=== PATIENT | male | born 1985 | race Two or more races ===

== ENCOUNTER 2024-03-06 06:59 | Emergency (ER) | payer MEDICAID, SELFPAY ==
--- NOTE | 2024-03-06 07:02 | EDNOTE_ITS ---
ED Overdose RME/HPI General Stated Complaint: OVERDOSE Time Seen by Provider: 03/06/24 07:04 Arrival date/time: 03/06/24 06:59 RME / HPI RME / HPI Narrative: This section includes all my notes and documentations, including HPI, PE, MDM, Procedure Notes, and PLAN. Conrado Sotomayor MD HPI: 38 year old male presents to the ED BIBA for overdose today. Per medics, mother on scene reported patient went in to use a restroom at a gas station and noted to be taking too long. States she went in to check on him and found the patient unresponsive on the floor. Medics reported fire department was first to arrive on scene and found white powdery substance in tin foil and administered 4mg IN Narcan with good response. Patient is now fully alert and awake and oriented. Patient declines to share details. He reports no complaints. ROS: Respiratory: negative except as documented in HPI. Gastrointestinal: negative except as documented in HPI. Genitourinary: negative except as documented in HPI. Musculoskeletal: negative except as documented in HPI. Skin: negative except as documented in HPI. Neurological: negative except as documented in HPI. Physical Exam: General: Alert and oriented. No acute distress. Eyes: Conjunctivae and lids clear. EOMI. PERRL. ENT: No nasal congestion. Pharynx normal. Tympanic membrane normal bilaterally. Neck: Supple. Heart: RRR. Lungs: No respiratory distress. Good air movement. No rhonchi, wheezing, rales. Skin: Warm and dry. Neuro: Alert and oriented X 3. Cranial Nerves II-XII grossly intact. No peripheral motor deficits. Musculoskeletal: All major joints and bones are not tender with no limited ROM. I ordered diagnostic tests. Patient decided to leave [facility]. Conrado Sotomayor MD Review of Systems Review of Systems Systems Reviewed: All systems reviewed, normal except as documented ED Exam Narrative Physical exam: As noted in HPI Course Quality Measures none Orders Category Date Time Status EKG (ED ONLY) *Do not use* NOW Care 03/06/24 07:05 Active Straight [In and Out Catheter] X1 Care 03/06/24 07:05 Active EKG (ED Only) Stat Exams 03/06/24 07:05 Ordered Acetaminophen Stat Lab 03/06/24 07:04 Ordered Alcohol, Blood Medical Stat Lab 03/06/24 07:04 Ordered CBC Stat Lab 03/06/24 07:05 Ordered CMP [Comprehensive Metabolic Panel] Stat Lab 03/06/24 07:04 Ordered Drug Screen,Urine Stat Lab 03/06/24 07:05 Ordered Magnesium Stat Lab 03/06/24 07:04 Ordered Salicylate Stat Lab 03/06/24 07:04 Ordered Troponin I Stat Lab 03/06/24 07:04 Ordered Overdose MDM Narrative MDM Narrative:: Queenie Jimenez am scribing for and in the presence of Dr. Sotomayor. Patient data External records reviewed:: EMS form Clinical information provided by:: patient and EMS Social determinants that could affect healthcare access:: substance use (Fentanyl) Patient has the following chronic illnesses:: No chronic medical hx reported How is presenting disease/condition affected by chronic disease/condition?: no chronic disease Evaluation data The following diagnostics were reviewed and interpreted by me:: other (specify) (Patient left AMA before diagnostic tests) Lab and/or radiology exams considered but not ordered:: None Interpretation Summary: N/A, patient left AMA prior to labs being performed Medications / Prescriptions Medications or Prescriptions considered but not ordered:: None Medication administrations:: Narcan administered by EMS, no medications administered in the ED. Consultations Consultation(s) initiated? (list below): No Diagnosis Overdose Differential Diagnosis: cocaine intoxication, poisoning by opiate or related narcotic, drug overdose, acetaminophen overdose, accidental drug ingestion and other (Fentanyl overdose) Most likely diagnosis given after review of the tests above:: Overdose Admission Indicated Admission indicated?: not indicated Explain why admission is indicated or not indicated:: Patient left AMA Admission Request Was there a request for admission?: No Disposition Plan Disposition Plan: other (specify) (Patient left AMA) Discharge Plan Prescriptions/Referrals Referrals: No Primary/Family,Physician [Primary Care Provider] - In 1 week Problem List Clinical Impression: Overdose Patient/Caregiver Discharge Instructions Print Language: German
[2024-03-06 07:25] VITALS: PULSE 120; O2SAT 99
--- NOTE | 2024-03-06 07:44 | PC.NURSE ---
PATIENT LEFT PRIOR TO BEING SEEN. ELOPED. EMS STATED CAUGHT PATIENT OUT SIDE AND REMOVED IV
== END 2024-03-06 10:22 | disposition left against medical advice (07) ==
LOC: SERX 07:38
PROVIDERS: Emergency Provider Emergency Medicine
DX: T65.91XA Toxic effect of unspecified substance, accidental (unintentional), initial encounter (principal); Z53.29 Procedure and treatment not carried out because of patient's decision for other reasons
CPT/HCPCS: 80053; 80307; 80320; 80329; 83735; 84484; 85025; G0480